=== PATIENT | female | born 1990 | race American Indian/Alaskan Native ===

== ENCOUNTER 2017-05-05 06:56 | Emergency (ER) | payer MEDICAID, OTHER ==
[2017-05-05 07:19] VITALS: BP 132/90
--- NOTE | 2017-05-05 09:03 | Emergency Department Report ---
ED ENT HPI - General Chief complaint: Dental/Oral Stated complaint: TOOTHACHE Time Seen by Provider: 05/05/17 08:19 Source: patient Mode of arrival: Ambulatory Limitations: No Limitations - History of Present Illness Initial comments: This is a 26-year-old female nontoxic, well nourished in appearance, no acute signs of distress presents to the ED complaining of toothache 1 day. Patient stated she has a fractured tooth that developed Severe pain. Patient denies any facial swelling, pus or drainage. Patient denies any fever, chills, stiff neck, headache, nausea or vomiting. Patient states allergies to codeine and Bentyl. Past medical history includes pancreatitis and hypokalemia MD complaint: tooth pain -: Gradual, days(s) (1) Severity: mild Severity scale (0 -10): 8 Quality: aching Consistency: constant Improves with: none Worsens with: none Context- Dental: history of dental caries, poor dental care Associated Symptoms: toothache. denies: fever, cough, gum swelling, pain with swallowing, sore throat, tinnitus, hearing loss, discharge from ear, rhinorrhea - Related Data Previous Rx's Medication Instructions Recorded Last Taken Type Amoxicillin/K Clav Tab [Augmentin 1 tab PO Q12HR #20 tab 05/05/17 Unknown Rx 875 mg] Ibuprofen [Motrin 600 MG tab] 600 mg PO Q8H PRN #30 tablet 05/05/17 Unknown Rx Allergies Allergy/AdvReac Type Severity Reaction Status Date / Time codeine Allergy Swelling Verified 05/05/17 07:20 dicyclomine HCl [From Bentyl] Allergy Swelling Verified 05/05/17 07:20 ED Dental HPI - General Chief complaint: Dental/Oral Stated complaint: TOOTHACHE Time Seen by Provider: 05/05/17 08:19 Source: patient Mode of arrival: Ambulatory Limitations: No Limitations - Related Data Previous Rx's Medication Instructions Recorded Last Taken Type Amoxicillin/K Clav Tab [Augmentin 1 tab PO Q12HR #20 tab 05/05/17 Unknown Rx 875 mg] Ibuprofen [Motrin 600 MG tab] 600 mg PO Q8H PRN #30 tablet 05/05/17 Unknown Rx Allergies Allergy/AdvReac Type Severity Reaction Status Date / Time codeine Allergy Swelling Verified 05/05/17 07:20 dicyclomine HCl [From Bentyl] Allergy Swelling Verified 05/05/17 07:20 ED Review of Systems ROS: Stated complaint: TOOTHACHE Other details as noted in HPI Constitutional: denies: chills, fever Eyes: denies: eye pain, eye discharge, vision change ENT: denies: ear pain, throat pain Respiratory: denies: cough, shortness of breath, wheezing Cardiovascular: denies: chest pain, palpitations Endocrine: no symptoms reported Gastrointestinal: denies: abdominal pain, nausea, diarrhea Genitourinary: denies: urgency, dysuria, discharge Musculoskeletal: denies: back pain, joint swelling, arthralgia Skin: denies: rash, lesions Neurological: denies: headache, weakness, paresthesias Psychiatric: denies: anxiety, depression Hematological/Lymphatic: denies: easy bleeding, easy bruising ED Past Medical Hx - Past Medical History Previous Medical History?: Yes Additional medical history: pancreatitis, low potassium - Surgical History Past Surgical History?: Yes Hx Cholecystectomy: Yes - Social History Smoking Status: Never Smoker Substance Use Type: None - Medications Home Medications: Home Medications Medication Instructions Recorded Confirmed Last Taken Type Amoxicillin/K Clav Tab [Augmentin 1 tab PO Q12HR #20 tab 05/05/17 Unknown Rx 875 mg] Ibuprofen [Motrin 600 MG tab] 600 mg PO Q8H PRN #30 tablet 05/05/17 Unknown Rx ED Physical Exam - General Limitations: No Limitations General appearance: alert, in no apparent distress - Head Head exam: Present: atraumatic, normocephalic, normal inspection - Eye Eye exam: Present: normal appearance, PERRL, EOMI. Absent: scleral icterus, conjunctival injection, nystagmus, periorbital swelling, periorbital tenderness Pupils: Present: normal accommodation - ENT ENT exam: Present: normal exam, normal orophraynx, mucous membranes moist, TM's normal bilaterally, normal external ear exam - Expanded ENT Exam Expanded Ear exam: Present: normal external inspection Mouth exam: Present: normal external inspection, tongue normal. Absent: drooling, trismus, muffled voice, tongue elevation, laceration Teeth exam: Present: dental caries, fractured tooth #, dental tenderness #, gingival enlargement 1 - Fractured, Dental Tenderness Throat exam: Positive: normal inspection. Negative: tonsillar erythema, tonsillomegaly, tonsillar exudate, R peritonsillar mass, L peritonsillar mass - Neck Neck exam: Present: normal inspection, full ROM. Absent: tenderness, meningismus, lymphadenopathy, thyromegaly - Respiratory Respiratory exam: Present: normal lung sounds bilaterally. Absent: respiratory distress, wheezes, rales, rhonchi, stridor, chest wall tenderness, accessory muscle use, decreased breath sounds, prolonged expiratory - Cardiovascular Cardiovascular Exam: Present: regular rate, normal rhythm, normal heart sounds. Absent: bradycardia, tachycardia, irregular rhythm, systolic murmur, diastolic murmur, rubs, gallop - GI/Abdominal GI/Abdominal exam: Present: soft, normal bowel sounds. Absent: distended, guarding, rebound, rigid, diminished bowel sounds - Rectal Rectal exam: Present: deferred - Extremities Exam Extremities exam: Present: normal inspection, full ROM, normal capillary refill. Absent: tenderness, pedal edema, joint swelling, calf tenderness - Back Exam Back exam: Present: normal inspection, full ROM. Absent: tenderness, CVA tenderness (R), CVA tenderness (L), muscle spasm, paraspinal tenderness, vertebral tenderness, rash noted - Neurological Exam Neurological exam: Present: alert, oriented X3, CN II-XII intact, normal gait, reflexes normal - Psychiatric Psychiatric exam: Present: normal affect, normal mood - Skin Skin exam: Present: warm, dry, intact, normal color. Absent: rash - Other Other exam information: No facial swelling, pus or drainage noted. ED Course Vital Signs 05/05/17 07:17 Temperature 98.6 F Pulse Rate 70 Respiratory 16 Rate Blood Pressure 132/90 O2 Sat by Pulse 100 Oximetry - Reevaluation(s) Reevaluation #1: 05/05/17 09:05 Patient is speaking in full sentences with no signs of distress noted. Critical care attestation.: If time is entered above; I have spent that time in minutes in the direct care of this critically ill patient, excluding procedure time. ED Disposition Clinical Impression: Dental caries, Gingivitis Disposition: TO HOME OR SELFCARE Is pt being admited?: No Does the pt Need Aspirin: No Condition: Stable Instructions: Dental Caries (ED), Gingivitis (ED), Amoxicillin/Clavulanate Potassium (By mouth) Additional Instructions: Follow-up with a dentist in 24 hours or if symptoms worsen continue return to emergency as soon as possible. Prescriptions: Amoxicillin/K Clav Tab [Augmentin 875 mg] 1 tab PO Q12HR #20 tab Ibuprofen [Motrin 600 MG tab] 600 mg PO Q8H PRN #30 tablet PRN Reason: Pain Referrals: PRIMARY CAREMD [Primary Care Provider] - 3-5 Days DREAD HENRY MD [Staff Physician] - 3-5 Days [facility] [Outside] - 24 Hours Forms: Work/School Release Form(ED)
== END 2017-05-05 10:34 | disposition home or self-care (01) ==
LOC: ED 06:56
DX: K02.9 Dental caries, unspecified (principal); K05.10 Chronic gingivitis, plaque induced
CPT/HCPCS: 99281

== ENCOUNTER 2019-09-16 18:42 | Emergency (ER) | payer MEDICAID ==
--- NOTE | 2019-09-16 19:26 | Event Note ---
ED Screening Note Date of service: 09/16/19 Time: 19:22 ED Screening Note: 28 y o femalewith a hx of low potassium at 6 months gestation presents cc of cp, tingling of finhgers and body aves and cramps hx of k infusion do not oral pottasium n/v due to no other sx This initial assessment/diagnostic orders/clinical plan/treatment(s) is/are subject to change based on patients health status, clinical progression and re- assessment by fellow clinical providers in the ED. Further treatment and workup at subsequent clinical providers discretion. Patient/guardian urged not to elope from the ED as their condition may be serious if not clinically assessed and managed. Initial orders include: cbc,cmp, ekg main eval
[2019-09-16 20:46] LABS: Basophils % (Auto) 0.3 % (0.0-1.8); Eosinophils # (Auto) 0.1 K/mm3 (0.0-0.4); Eosinophils % (Auto) 1.1 % (0.0-4.3); Hemoglobin 11.7 gm/dl (10.1-14.3); Lymphocytes # (Auto) 1.7 K/mm3 (1.2-5.4); Mean Corpuscular HGB Conc 35 % (30-34); Mean Corpuscular Volume 81 fl (79-97); Monocytes # (Auto) 0.4 K/mm3 (0.0-0.8); Monocytes % (Auto) 4.7 % (0.0-7.3); Platelet Count 213 K/mm3 (140-440); Red Blood Count 4.22 M/mm3 (3.65-5.03); Red Cell Distribution Width 14.4 % (13.2-15.2)
[2019-09-16 21:07] LABS: Alanine Aminotransferase 15 units/L (7-56); Albumin 3.9 g/dL (3.9-5); BUN/Creatinine Ratio 13; Blood Urea Nitrogen 5 mg/dL (7-17); Calcium 9.6 mg/dL (8.4-10.2); Hemolysis Index 1
[2019-09-16] MEDS ORDERED: POTASSIUM CHLORIDE ER 20 MEQ TAB PO ONE (22:13)
[2019-09-16] MEDS ORDERED: ONDANSETRON 4 MG ODT TAB PO ONE (22:13)
--- NOTE | 2019-09-16 22:25 | Emergency Department Report ---
ED General Adult HPI - General Chief complaint: Nausea/Vomiting/Diarrhea Stated complaint: THROWING UP Time Seen by Provider: 09/16/19 22:13 Source: patient Mode of arrival: Ambulatory Limitations: No Limitations - History of Present Illness Initial comments: Ms. Hall is 28 yo female with hx of current and hypokalemia who presents with nausea vomiting finger tingling. She is 6 months according to outpatient OB visit. She plans to terminate the out of state. She denies abdominal pain or vaginal bleeding. Symptoms have been present for several days. -: Gradual, days(s) (3) Location: left, right, upper extremity Severity scale (0 -10): 0 Quality: burning, other (tingling) Consistency: constant Improves with: none Worsens with: none Associated Symptoms: nausea/vomiting - Related Data Previous Rx's Medication Instructions Recorded Last Taken Type Amoxicillin/K Clav Tab [Augmentin 1 tab PO Q12HR #20 tab 05/05/17 Unknown Rx 875 mg] Ibuprofen [Motrin 600 MG tab] 600 mg PO Q8H PRN #30 tablet 05/05/17 Unknown Rx traMADoL [Ultram] 50 mg PO Q6HR PRN #3 tablet 05/05/17 Unknown Rx Potassium Chloride [K-Dur] 10 meq PO QDAY #30 tablet 09/16/19 Unknown Rx Promethazine [Phenergan SUPPOS] 25 mg TN Q6HR PRN #20 supp.rect 09/16/19 Unknown Rx Allergies Allergy/AdvReac Type Severity Reaction Status Date / Time codeine Allergy Swelling Verified 05/05/17 07:20 dicyclomine HCl [From Bentyl] Allergy Swelling Verified 05/05/17 07:20 ED Review of Systems ROS: Stated complaint: THROWING UP Other details as noted in HPI Comment: All other systems reviewed and negative Constitutional: denies: chills, fever, malaise Gastrointestinal: denies: abdominal pain Neurological: paresthesias ED Past Medical Hx - Past Medical History Previous Medical History?: Yes Additional medical history: pancreatitis, low potassium - Surgical History Past Surgical History?: Yes Hx Cholecystectomy: Yes - Social History Smoking Status: Never Smoker Substance Use Type: None - Medications Home Medications: Home Medications Medication Instructions Recorded Confirmed Last Taken Type Amoxicillin/K Clav Tab [Augmentin 1 tab PO Q12HR #20 tab 05/05/17 Unknown Rx 875 mg] Ibuprofen [Motrin 600 MG tab] 600 mg PO Q8H PRN #30 tablet 05/05/17 Unknown Rx traMADoL [Ultram] 50 mg PO Q6HR PRN #3 tablet 05/05/17 Unknown Rx Potassium Chloride [K-Dur] 10 meq PO QDAY #30 tablet 09/16/19 Unknown Rx Promethazine [Phenergan SUPPOS] 25 mg TN Q6HR PRN #20 supp.rect 09/16/19 Unknown Rx ED Physical Exam - General Limitations: No Limitations General appearance: alert, in no apparent distress, other (well appearing comfortable) - Head Head exam: Present: atraumatic, normocephalic - Eye Eye exam: Present: normal appearance - ENT ENT exam: Present: mucous membranes moist - Neck Neck exam: Present: normal inspection, full ROM - Respiratory Respiratory exam: Present: normal lung sounds bilaterally. Absent: respiratory distress, wheezes, rales, rhonchi - Cardiovascular Cardiovascular Exam: Present: regular rate, normal rhythm, normal heart sounds. Absent: systolic murmur, diastolic murmur, rubs, gallop - GI/Abdominal GI/Abdominal exam: Present: soft, distended (gravid 20 week uterus on palpuation above umbilicus), normal bowel sounds. Absent: tenderness, guarding, rebound - Extremities Exam Extremities exam: Present: normal inspection - Neurological Exam Neurological exam: Present: alert, oriented X3 - Psychiatric Psychiatric exam: Present: normal affect, normal mood - Skin Skin exam: Present: warm, dry, intact, normal color. Absent: rash ED Course Vital Signs 09/16/19 19:40 Temperature 98.5 F Pulse Rate 97 H Respiratory 18 Rate Blood Pressure 144/78 [Left] O2 Sat by Pulse 99 Oximetry ED Medical Decision Making - Lab Data Result diagrams: 09/16/19 20:28 09/16/19 20:28 - EKG Data EKG shows normal: sinus rhythm, axis, intervals, QRS complexes, ST-T waves Rate: normal - EKG Data Interpretation: normal EKG - Medical Decision Making Ms. Hall presents with hypokalemia 2.7 on labs with reported n/v. Appears well hydrated. given zofran ODT and po kcl prescribed promethazine and kcl she is referred to her ob [facility] Critical care attestation.: If time is entered above; I have spent that time in minutes in the direct care of this critically ill patient, excluding procedure time. ED Disposition Clinical Impression: Hypokalemia, Second trimester , Paresthesia Disposition: TO HOME OR SELFCARE Is pt being admited?: No Does the pt Need Aspirin: No Condition: Stable Instructions: Hypokalemia (ED) Prescriptions: Potassium Chloride [K-Dur] 10 meq PO QDAY #30 tablet Promethazine [Phenergan SUPPOS] 25 mg TN Q6HR PRN #20 supp.rect PRN Reason: Nausea Referrals: NELI CHOI MD [Staff Physician] - 3-5 Days
[2019-09-17 00:40] VITALS: BP 132/88
== END 2019-09-16 23:10 | disposition home or self-care (01) ==
LOC: ED 18:42
DX: O99.282 Endocrine, nutritional and metabolic diseases complicating pregnancy, second trimester (principal); E87.6 Hypokalemia; O26.892 Other specified pregnancy related conditions, second trimester; R20.2 Paresthesia of skin; Z90.49 Acquired absence of other specified parts of digestive tract; Z79.1 Long term (current) use of non-steroidal anti-inflammatories (NSAID); Z79.2 Long term (current) use of antibiotics; Z79.899 Other long term (current) drug therapy; Z88.4 Allergy status to anesthetic agent; Z88.8 Allergy status to other drugs, medicaments and biological substances; Z3A.20 20 weeks gestation of pregnancy
CPT/HCPCS: 36415; 80053; 83735; 85025; 93005; 93010; Q0162

== ENCOUNTER 2019-11-01 02:39 | Outpatient (CLI) | payer MEDICAID ==
[2019-11-01 02:51] VITALS: BP 121/64
== END 2019-11-01 04:36 | disposition home or self-care (01) ==
LOC: TRG 02:39
PROVIDERS: ATTEND Obstetrics & Gynecology
DX: O60.14X1 Preterm labor third trimester with preterm delivery third trimester, fetus 1 (principal); Z3A.32 32 weeks gestation of pregnancy
CPT/HCPCS: 59025

== ENCOUNTER 2019-11-21 04:40 | Outpatient (CLI) | payer MEDICAID ==
[2019-11-21 06:54] LABS: Basophils % (Auto) 0.3 % (0.0-1.8); Eosinophils # (Auto) 0.3 K/mm3 (0.0-0.4); Eosinophils % (Auto) 3.1 % (0.0-4.3); Hematocrit 31.1 % (30.3-42.9); Hemoglobin 10.3 gm/dl (10.1-14.3); Lymphocytes # (Auto) 2.2 K/mm3 (1.2-5.4); Lymphocytes % (Auto) 23.7 % (13.4-35.0); Mean Corpuscular HGB Conc 33 % (30-34); Mean Corpuscular Volume 81 fl (79-97); Monocytes # (Auto) 0.7 K/mm3 (0.0-0.8); Monocytes % (Auto) 7.2 % (0.0-7.3); Platelet Count 200 K/mm3 (140-440); Red Blood Count 3.86 M/mm3 (3.65-5.03); Red Cell Distribution Width 14.4 % (13.2-15.2)
[2019-11-21 07:04] LABS: Color,Urine Yellow (Yellow)
[2019-11-21 07:05] LABS: Bilirubin,Urine NEG (Negative); Blood,Urine NEG (Negative); Protein,Urine <15 mg/dL mg/dL (Negative); RBC,Urine < 1.0 /HPF (0.0-6.0)
[2019-11-21 07:13] LABS: Amphetamine Screen,Urine PRESUMPTIVE NEGATIVE; Benzodiazepines Screen,Urine PRESUMPTIVE NEGATIVE; Cannabinoid Screen,Urine PRESUMPTIVE NEGATIVE; Cocaine Screen,Urine PRESUMPTIVE NEGATIVE; Methadone Screen,Urine PRESUMPTIVE NEGATIVE; Opiate Screen,Urine PRESUMPTIVE NEGATIVE
[2019-11-21 07:24] LABS: Hepatitis C Virus Antibody Non-Reactive (NonReactive)
--- NOTE | 2019-11-21 07:32 | Ultrasound Report ---
US OB BPP wo non-stress, US OB >= 14 weeks Fetus INDICATION / CLINICAL INFORMATION: ASSESSMENT. COMPARISON: None available. FINDINGS: Single viable intrauterine gestation in cephalic presentation. heart rate 178 bpm The MEAGAN is 12. Grade 1 placenta is anterior and free of the os. measurements: BPD 7.8 equal to 31 weeks 2 days Head circumference 29.5 equal to 32 weeks 4 days Abdominal circumference 30.1 equals to 34 weeks Femur length 6.2 equal to 32 weeks 1 day Estimated body weight 2117 g. Cervical length is measured at 3.4 cm. Biophysical score 03/22. IMPRESSION: 1. Viable 32 week single intrauterine gestation. Signer Name: Luis Enrique Parry MD Signed: 11/21/2019 7:28 AM Workstation Name: [email or web address]
[2019-11-21 07:33] VITALS: BP 112/69
[2019-11-21 07:37] LABS: HCG,Quantitative 18947 mIU/mL (0-4)
== END 2019-11-21 08:10 | disposition home or self-care (01) ==
LOC: TRG 04:40
PROVIDERS: ATTEND Obstetrics & Gynecology
DX: Z3A.32 32 weeks gestation of pregnancy (principal); O26.893 Other specified pregnancy related conditions, third trimester
CPT/HCPCS: 36415; 59025; 76805; 76819; 80307; 81001; 84702; 85025; 86592; 86706; 86762; 86803; 87806

== ENCOUNTER 2019-12-09 02:36 | Outpatient (CLI) | payer MEDICAID ==
[2019-12-09 03:51] LABS: Hematocrit 32.8 % (30.3-42.9); Hemoglobin 11.2 gm/dl (10.1-14.3); Mean Corpuscular HGB Conc 34 % (30-34); Mean Corpuscular Volume 80 fl (79-97); Platelet Count 170 K/mm3 (140-440); Red Cell Distribution Width 14.1 % (13.2-15.2)
[2019-12-09 03:59] LABS: Bilirubin,Urine NEG (Negative); Blood,Urine NEG (Negative); Color,Urine Yellow (Yellow); Protein,Urine <15 mg/dL mg/dL (Negative); Urobilinogen,Urine < 2.0 mg/dL (<2.0); WBC,Urine < 1.0 /HPF (0.0-6.0)
[2019-12-09 04:07] LABS: Alanine Aminotransferase 8 units/L (7-56); Uric Acid 4.8 mg/dL (3.5-7.6)
[2019-12-09 05:12] VITALS: BP 118/81
--- NOTE | 2019-12-09 05:15 | Event Note ---
Date: 12/09/19 (Triage evaluation) Called and c/o poss leaking fluid and "loosing mucus plug" Evaluated in Triage BPP 8/8, MEAGAN 11 Pt had 2 BP 120/90 & 120/91 PreE w/u wnl remainder of BPs wnl. Denies any OSUNA, blurred vision, chest pain. Appt made for pt 12-10-19 @ 1030 in [place] office Needs IOB labs and GTT Pt aware and agrees to date and time.
--- NOTE | 2019-12-09 05:57 | Ultrasound Report ---
LIMITED OBSTETRICAL ULTRASOUND INDICATION: Near term , fluid leak COMPARISON: 11/21/2019 FINDINGS: Near term intrauterine is seen in a cephalic position. Dating was not performed a nd anatomic survey was not performed. Cardiac activity was documented with heart rate of 131 bp m. Placenta is anterior and free of the internal cervical os. MEAGAN was calculated at 11.6 cm which is within normal limits. BIOPHYSICAL PROFILE breathing movements: 2/2 movements: 2/2 posture and tone tone: 2/2 Qualitative amniotic fluid volume: 2/2 Total score: 8/8, within normal limits Signer Name: Keven Bryant MD Signed: 12/09/2019 5:53 AM Workstation Name: [email or web address]
== END 2019-12-09 05:15 | disposition home or self-care (01) ==
LOC: TRG 02:36 → APU 02:37 → TRG 05:15
PROVIDERS: ATTEND Obstetrics & Gynecology
DX: O47.03 False labor before 37 completed weeks of gestation, third trimester (principal); Z3A.35 35 weeks gestation of pregnancy
CPT/HCPCS: 36415; 59025; 76815; 76819; 81001; 82565; 83615; 84450; 84460; 84550; 85027

== ENCOUNTER 2019-12-27 20:31 | Inpatient (IN) | payer MEDICAID ==
[2019-12-27] MEDS ORDERED: MINERAL OIL 30 ML ORAL LIQD ONE (20:45)
[2019-12-27] MEDS ORDERED: OXYTOCIN 20 UNIT/1000ML DRIP 40,000 MILLIUNITS/2,000 ML BAG IV ONE (20:45)
[2019-12-27] MEDS ORDERED: LIDOCAINE (2%) 20 MG/1 ML VIAL 20 ML MDV INFILTRATI ONE ×2 (20:46→21:44)
[2019-12-27] MEDS ORDERED: LACTATED RINGERS 1,000 ML ONE (20:46)
[2019-12-27] MEDS ORDERED: fentaNYL 100 MCG/2 ML INJ ONE (20:57)
--- NOTE | 2019-12-27 21:41 | History and Physical Report ---
History of Present Illness Date of examination: 12/27/19 Chief complaint: labor, arrived 10cms History of present illness: EDC Confirmation: 01/16/2020 Past History : 7 Term Births: 5 Premature Births: 1 Living Children: 6 Para: 6 Mult. Births: 0 Prev : 0 Aborta: 0 Elect. Ab: 0 Spont. Ab: 0 # 1 Delivery date: 2007 Weeks Gestation: term labor: no Delivery type: Vaginal Hours of labor: 3 Anesthesia type: none Delivery location: [facility] Infant Sex: Female weight: 7#5 Comments: limited care # 2 Delivery date: 2009 Weeks Gestation: term labor: no Delivery type: Infant Sex: Male weight: 8# # 3 Delivery date: 2011 Weeks Gestation: term labor: no Delivery type: Infant Sex: Male weight: 6#5 # 4 Delivery date: 2014 Weeks Gestation: term labor: no Delivery type: Sex: Male weight: 8# # 5 Delivery date: 2017 Weeks Gestation: term labor: no Delivery type: Infant Sex: Female weight: 5# # 6 Delivery date: 10/24/2018 Weeks Gestation: 36+1 labor: yes Delivery type: Hours of labor: 3 Anesthesia type: none Delivery location: [facility] Infant Sex: Male weight: 6# Comments: very limtied [facility] Past Medical History: pancreatitis - managed by [facility] in [place] Past Surgical History: Cholecystectomy Past Medical History Surgery (Non-imaging analyst): Cholecystectomy Abnormal PAP: negative Family Hx: htn - mother Social Hx: stay at home mom denies ETOH/Drugs/Smoking no pets Infection History Hx of STD: trich 2008 HIV Risk Eval: low risk Hepatitis B Risk Eval: low risk Personal hx. of genital herpes: no Partner hx. of genital herpes: no Rash, Viral, or Febrile illness since last LMP? no Varicella/Chicken Pox Status: Unknown Genetic History Congenital Heart Defect: Mom: no Dad: no Kristin Disease: Mom: no Dad: no Thalassemia Mom: no Dad: no Neural Tube Defect Mom: no Dad: no Down's Syndrome Mom: no Dad: no Chi-Sachs Mom: no Dad: no Sickle Cell Disease/Trait Mom: no Dad: no Hemophilia Mom: no Dad: no Muscular Dystrophy Mom: no Dad: no Cystic Fibrosis Mom: no Dad: no [place] Chorea Mom: no Dad: no Mental Retardation Mom: no Dad: no Fragile X Mom: no Dad: no Other Genetic/Chromosomal Disorder Mom: no Dad: no Child w/other defect Mom: no Dad: no Enviromental Exposures Xray Exposure: no Medication, drug, or alcohol use since LMP: no Chemical/Other Exposure: no Exposure to Cat Liter: no Hx of Parvovirus (Fifth Disease): no Occupational Exposure to Children: none Current Allergies (reviewed today): No known allergies Past History Past Medical History: other (se HPI) Past Surgical History: other (see HPI) SQL TECH History: other (see HPI) Family/Genetic History: other (see HPI) - Obstetrical History Expected Date of Delivery: 01/16/20 Actual Gestation: 37 Week(s) 1 Day(s) : 7 Para: 6 Hx # Term Pregnancies: 5 Number of Pregnancies: 1 Spontaneous Abortions: 0 Induced : 0 Number of Living Children: 6 Medications and Allergies Allergies Allergy/AdvReac Type Severity Reaction Status Date / Time ibuprofen Allergy Mild Itching Verified 11/01/19 03:01 codeine Allergy Swelling Verified 05/05/17 07:20 dicyclomine HCl [From Bentyl] Allergy Swelling Verified 05/05/17 07:20 Home Medications Medication Instructions Recorded Confirmed Last Taken Type Amoxicillin/K Clav Tab [Augmentin 1 tab PO Q12HR #20 tab 05/05/17 Unknown Rx 875 mg] Ibuprofen [Motrin 600 MG tab] 600 mg PO Q8H PRN #30 tablet 05/05/17 Unknown Rx traMADoL [Ultram] 50 mg PO Q6HR PRN #3 tablet 05/05/17 Unknown Rx Potassium Chloride [K-Dur] 10 meq PO QDAY #30 tablet 09/16/19 Unknown Rx Promethazine [Phenergan SUPPOS] 25 mg NV Q6HR PRN #20 supp.rect 09/16/19 Unknown Rx Review of Systems All systems: negative - Vital Signs Vital signs: Vital Signs Temp Pulse Resp BP 97.5 F L 96 H 20 148/91 12/27/19 20:35 12/27/19 20:35 12/27/19 20:35 12/27/19 20:35 Temp Pulse Resp BP Pulse Ox 97.5 F L 96 H 20 148/91 12/27/19 20:35 12/27/19 20:35 12/27/19 20:35 12/27/19 20:35 - Physical Exam Breasts: Positive: normal Cardiovascular: Regular rate Lungs: Positive: Clear to auscultation, Normal air movement Abdomen: Positive: normal appearance, soft Genitourinary (Female): Positive: normal external genitalia, normal perenium Vulva: both: normal Vagina: Positive: normal moisture Uterus: Positive: normal size, normal contour Anus/Rectum: Positive: normal perianal skin Extremities: Positive: normal Deep Tendon Reflex Grade: Normal +2 - Obstetrical FHR: category 1 Uterine Contraction Monitor Mode: External Cervical Dilatation: 10 Cervical Effacement Percentage: 100 station: 0 Uterine Contraction Pattern: Regular Uterine Tone Measurement Phase: Contraction Uterine Contraction Intensity: Strong/Firm Results All other labs normal. Assessment and Plan patient arrived via EMS 10cms. Admission orders in EMR. Anticipate - Patient Problems (1) Limited care in third trimester Current Visit: Yes Status: Acute (2) 37 weeks gestation of Current Visit: Yes Status: Acute (3) GBS (group B Streptococcus carrier), +RV culture, currently Current Visit: Yes Status: Acute
[2019-12-27] MEDS ORDERED: TERBUTALINE 1 MG/1 ML INJ SUB-Q PRN (21:44)
[2019-12-27] MEDS ORDERED: AMPICILLIN/NS 2 GM/100 ML 2 GM/100 ML BAG IV ONE (21:44)
[2019-12-27] MEDS ORDERED: fentaNYL 100 MCG/2 ML INJ IV PRN (21:44)
[2019-12-27] MEDS ORDERED: ePHEDrine SULFATE 50 MG/1 ML INJ IV PRN (21:44)
[2019-12-27] MEDS ORDERED: MINERAL OIL 30 ML ORAL LIQD PO PRN (21:44)
--- NOTE | 2019-12-27 21:54 | Procedure Note ---
OB Delivery Note - Delivery Date of Delivery: 12/27/19 ( Male "Seven") Director Of Officiating: FRANCINE SCHNEIDER Estimated blood loss: 200cc - Vaginal Delivery presentation: vertex Delivery position: OA Intrapartum events: precipitous labor- <3hr, other(please specify) (limited PNC) Delivery induction: none Delivery augmentation: rupture of membranes Delivery monitor: external FHT, external uterine Route of delivery: Delivery placenta: spontaneous Delivery cord: 3 umbilical vessels Episiotomy: none Delivery laceration: none Anesthesia: none Delivery comments: Male baby born over intact perineum, EDDY. placed skin to skin on mother's abdomen. 3 vessel cord clamped and cut. Cord blood collected. Placenta del intact and complete. no lacerations to repair. EBL 200. Apgars 8/9. wt 6#9.5oz. counts correct. mother bad baby LDR stable. - Infant A at 1 minute: 8 at 5 minutes: 9 Infant Gender: Male (6#9.5oz "Seven")
[2019-12-27] MEDS ORDERED: OXYTOCIN 20 UNIT/1000ML DRIP 20 UNITS/1,000 ML BAG IV SCH (22:00)
[2019-12-27] MEDS ORDERED: LACTATED RINGERS 1,000 ML IV SCH (22:00)
[2019-12-27 22:34] LABS: Hematocrit 33.9 % (30.3-42.9); Hemoglobin 11.1 gm/dl (10.1-14.3); Mean Corpuscular HGB Conc 33 % (30-34); Mean Corpuscular Volume 79 fl (79-97); Platelet Count 186 K/mm3 (140-440); Red Blood Count 4.27 M/mm3 (3.65-5.03); Red Cell Distribution Width 14.8 % (13.2-15.2)
[2019-12-28] MEDS ORDERED: AMPICILLIN/NS 1 GM/50 ML 1 GM/50 ML BAG IV SCH (01:45)
[2019-12-28] MEDS ORDERED: LANOLIN/ZINC/DIMETHICONE (LANSINOH) 7 GM TP PRN (01:48)
[2019-12-28] MEDS ORDERED: MAGNESIUM HYDROXIDE (MOM) ORAL LIQD UDC PO PRN (01:48)
[2019-12-28] MEDS ORDERED: PROMETHAZINE 25 MG TAB PO PRN (01:48)
[2019-12-28] MEDS ORDERED: ONDANSETRON 4 MG/2 ML INJ IV PRN (01:48)
[2019-12-28] MEDS ORDERED: diphenhydrAMINE 25 MG CAP PO PRN (01:48)
[2019-12-28] MEDS ORDERED: OXYTOCIN 20 UNIT/1000ML DRIP 20 UNITS/1,000 ML BAG IV SCH (01:48)
[2019-12-28] MEDS ORDERED: BENZOCAINE/MENTHOL 20/0.5% TOP SPRAY 56 GM TP PRN (01:48)
[2019-12-28] MEDS ORDERED: WITCH HAZEL/ GLYCERIN PAD TP PRN (01:48)
[2019-12-28] MEDS: DOCUSATE SODIUM 100 MG CAP PO SCH ×2 (02:34→09:27)
[2019-12-28] MEDS: ACETAMINOPHEN 325 MG TAB PO PRN ×3 (02:34→23:07)
[2019-12-28] MEDS ORDERED: DIPHtheria,PERTUSSIS(ACELL),TETANUS VACCINE/PF 0.5 ML VIAL IM ONE (06:00)
[2019-12-28] MEDS: PRENATAL VIT27-FE FUMARATE-FOLIC ACID VIT TAB PO SCH (09:27)
[2019-12-28 10:12] LABS: Hemoglobin 9.2 gm/dl (10.1-14.3)
--- NOTE | 2019-12-28 13:32 | Discharge Summary ---
Providers - Providers Date of Admission: 12/27/19 21:19 Date of discharge: 12/28/19 (Pt has very strong desire to go home. ) Attending physician: ART ARANDA Primary care physician: ART ARANDA Hospitalization Reason for admission: active labor Delivery: Episiotomy: none Laceration: none Other procedures: none complications: none Discharge diagnosis: IUP at term delivered [place] baby: male Hospital course: S: Pt has a very strong desire to go home. She is ambulating, voiding and passing flatus without difficulty. BC: BTL. Will have Depo before discharge home. O: VSS,. Fundus firm, minimal bleeding noted. Adequate I&O's. H/H 9.2/28.0. A: 29 y.o. s/p @ term, limited PNC. Stable for discharge home. P: Discharge home with instructions. To schedule and circumcision appointments once discharged. Condition at discharge: Good Disposition: DC-01 TO HOME OR SELFCARE Plan - Discharge Medications Prescriptions: Lidocain2.5%/Prilocai2.5% [Emla] 1 applic TP ONCE #1 tube - Provider Discharge Summary Activity: routine, no sex for 6 weeks, no heavy lifting 4 weeks, no strenuous exercise Diet: routine Instructions: routine Additional instructions: [] Smoking cessation referral if applicable(refer to patient education folder for contact #) [] Refer to [facility] Booklet Call your doctor immediately for: * Fever > 100.5 * Heavy vaginal bleeding ( >1 pad per hour) * Severe persistent headache * Shortness of breath * Reddened, hot, painful area to leg or breast * Drainage or odor from incision. * Keep incision clean and dry at all times and follow doctor's instructions regarding bathing/showering - Follow up plan Follow up: ART ARANDA MD [Primary Care Provider] - 7 Days (Congratulations!! Please schedule circumcision visit in the office for your son in 1 week. You have been prescribed EMLA cream. Do not use the EMLA cream at home. Bring the EMLA cream to your son's circumcision appointment. Please schedule a visit in 4 weeks. )
[2019-12-28] MEDS ORDERED: medroxyPROGESTERone ACETATE 150 MG/ML SYRINGE IM ONE (19:14)
[2019-12-29] MEDS: ACETAMINOPHEN 325 MG TAB PO PRN (06:45)
--- NOTE | 2019-12-29 09:27 | Event Note ---
Date: 12/29/19 (Pt resting. ) Pt is doing well at this time. Per RN can not be discharged d/t still being watched because pt did not get antibiotics for GBS positive because she was a precipitous delivery. Pt aware that infant will need to stay for 48 hours for observations. she is stable for discharge home and the order is written. Pt will be discharged home when infant is discharged home.
[2019-12-29] MEDS: DOCUSATE SODIUM 100 MG CAP PO SCH (09:43)
[2019-12-29] MEDS: PRENATAL VIT27-FE FUMARATE-FOLIC ACID VIT TAB PO SCH (09:43)
[2019-12-29 15:03] VITALS: BP 134/84
[2019-12-29] MEDS ORDERED: medroxyPROGESTERone ACETATE 150 MG/ML SYRINGE IM ONE (15:08)
== END 2019-12-29 15:35 | disposition home or self-care (01) | DRG 775 ==
LOC: TRG 20:31 → LD 20:32 → TRG 21:19 → OB 12-28 01:01
PROVIDERS: ADMIT Obstetrics & Gynecology; ATTEND Obstetrics & Gynecology
PROC: 10E0XZZ Delivery of Products of Conception, External Approach (ICD-10-PCS; principal; 2019-12-27)
PROC: 3E0234Z Introduction of Serum, Toxoid and Vaccine into Muscle, Percutaneous Approach (ICD-10-PCS; 2019-12-27)
DX: O99.824 Streptococcus B carrier state complicating childbirth (principal); O62.3 Precipitate labor; Z3A.37 37 weeks gestation of pregnancy; Z37.0 Single live birth; Z23 Encounter for immunization; Z90.49 Acquired absence of other specified parts of digestive tract; Z88.5 Allergy status to narcotic agent; Z88.6 Allergy status to analgesic agent; Z88.8 Allergy status to other drugs, medicaments and biological substances
CPT/HCPCS: 36415; 85014; 85018; 85027; 86850; 86900; 86901; G0378; J1050; J2590; J3010; J7120

== ENCOUNTER 2020-08-07 02:00 | Emergency (ER) | payer MEDICAID | END 2020-08-07 03:00 | disposition left against medical advice (07) | LOC: ED 02:00 | DX: K08.89 Other specified disorders of teeth and supporting structures (principal); Z53.21 Procedure and treatment not carried out due to patient leaving prior to being seen by health care provider ==

== ENCOUNTER 2021-05-02 05:01 | Emergency (ER) | payer MEDICAID ==
--- NOTE | 2021-05-02 05:13 | Emergency Department Report ---
Chief Complaint: Abdominal Pain Stated Complaint: ABD PAIN Time Seen by Provider: 05/02/21 05:11 - ROS Review of Systems: 30-year-old G5 female with last menstrual period was sometime in January presents emerged from complaining of swelling to the abdomen along with some milky vaginal secretions and a positive home test a couple times last week. States that the pain the symptoms associated with cramping and which brought her to the emergency department this evening no fever, chills, sweats no vaginal bleeding reports no chest pain no palpitations. - Exam Physical Exam: Examination abdomen is protuberant pulses are 2+ to the inguinal region. Patient alert and oriented x3 no acute distress MSE screening note: Focused history and physical exam performed. Due to findings the following was ordered: ED Disposition for MSE Condition: Stable Instructions: Abdominal Pain (ED)
[2021-05-02 06:16] LABS: Basophils % (Auto) 0.4 % (0.0-1.8); Eosinophils # (Auto) 0.2 K/mm3 (0.0-0.4); Eosinophils % (Auto) 1.9 % (0.0-4.3); Hematocrit 36.3 % (30.3-42.9); Hemoglobin 12.3 gm/dl (10.1-14.3); Lymphocytes # (Auto) 2.4 K/mm3 (1.2-5.4); Lymphocytes % (Auto) 27.1 % (13.4-35.0); Mean Corpuscular HGB Conc 34 % (30-34); Mean Corpuscular Volume 81 fl (79-97); Monocytes # (Auto) 0.5 K/mm3 (0.0-0.8); Monocytes % (Auto) 5.6 % (0.0-7.3); Platelet Count 238 K/mm3 (140-440); Red Cell Distribution Width 13.9 % (13.2-15.2)
--- NOTE | 2021-05-02 06:48 | Ultrasound Report ---
. ULTRASOUND OBSTETRIC REASON FOR EXAM: and vaginal secretions TECHNIQUE: Transabdominal and transvaginal ultrasound was performed to evaluate a first trimester pre gnancy. COMPARISON: None available. FINDINGS: FINDINGS: The pole, yolk sac, and gestational sac are normal in appearance. [place]-rump length: 6.1 . This corresponds with a gestational age of 12 weeks 3 days. heart rate: 150 bpm Perigestational hemorrhage: No evidence of perigestational hemorrhage on the provided images. MATERNAL FINDINGS: The uterus demonstrates otherwise unremarkable sonographic appearance.. The right ovary demonstrates a normal sonographic appearance. The left ovary demonstrates a normal sonographic appearance. Cul-de-sac: There is no free fluid. IMPRESSION: Single live intrauterine . Gestational age is 12 weeks 3 days by ultrasound. Recommend clini ja screening and ultrasound follow-up in the second trimester to screen for anomalies. Signer Name: Jed Branch MD Signed: 05/02/2021 6:43 AM Workstation Name: [id number]
== END 2021-05-02 08:53 | disposition left against medical advice (07) ==
LOC: ED 05:01
DX: R10.9 Unspecified abdominal pain (principal); Z53.21 Procedure and treatment not carried out due to patient leaving prior to being seen by health care provider
CPT/HCPCS: 36415; 76801; 84702; 85025; 86900; 86901

== ENCOUNTER 2021-05-18 22:38 | Outpatient (CLI) | payer MEDICAID ==
[2021-05-18] MEDS ORDERED: LACTATED RINGERS 1,000 ML IV ONE (23:56)
[2021-05-19 01:05] LABS: Bilirubin,Urine NEG (Negative); Blood,Urine NEG (Negative); Color,Urine Yellow (Yellow); Mucus,Urine FEW /HPF; Protein,Urine <15 mg/dL mg/dL (Negative)
--- NOTE | 2021-05-19 01:40 | Ultrasound Report ---
Obstetrical ultrasound limited INDICATION: Abdominal pain with vaginal bleeding. patient FINDINGS: Single living intrauterine in the breech position. The placenta is posterior. The placenta grade 0. heart rate 151 bpm. IMPRESSION: No definite evidence of placental abruption. Single living intrauterine , as abo ve. Signer Name: Pacheco You MD Signed: 05/19/2021 1:36 AM Workstation Name: [id number]
== END 2021-05-19 01:50 | disposition home or self-care (01) ==
LOC: TRG 22:38 → APU 22:39 → TRG 05-19 01:50
PROVIDERS: ATTEND Obstetrics & Gynecology
DX: O47.03 False labor before 37 completed weeks of gestation, third trimester (principal); Z3A.37 37 weeks gestation of pregnancy
CPT/HCPCS: 59025; 76815; 81001; 87086; 96360; J7120

== ENCOUNTER 2021-07-18 06:12 | Outpatient (CLI) | payer MEDICAID ==
[2021-07-18] MEDS ORDERED: LACTATED RINGERS 500 ML IV ONE (07:05)
[2021-07-18 07:15] VITALS: BP 122/80
[2021-07-18 08:07] LABS: Hematocrit 33.8 % (30.3-42.9); Mean Corpuscular HGB Conc 33 % (30-34); Mean Corpuscular Volume 82 fl (79-97); Platelet Count 206 K/mm3 (140-440); Red Blood Count 4.13 M/mm3 (3.65-5.03); Red Cell Distribution Width 14.5 % (13.2-15.2)
--- NOTE | 2021-07-18 08:56 | Ultrasound Report ---
ULTRASOUND OBSTETRIC INDICATION / CLINICAL INFORMATION: well being, no care workup. Clinical Gestational Age (GA) in weeks, days: 23 weeks, 3 days TECHNIQUE: Transabdominal. COMPARISON: Ultrasound 05/19/2021 FINDINGS: Single intrauterine . Biparietal Diameter = 5.7 cm = 23 weeks 2 days Head Circumference = 21.5 cm = 23 weeks 4 days Abdominal Circumference = 17.6 cm = 22 weeks 3 days Femur Length = 3.8 cm = 22 weeks 1 day Average Ultrasound Age (AUA) = 22 weeks 6 days Heart Rate: 138 beats per minute. Estimated Weight in grams (if calculated): 509 g Estimated Weight Growth Percentile (if calculated): Not calculated Position: breech. Cervix: closed. Length in cm (if measured): 3.4 Placenta: 0 and free of the os. Placenta is right lateral in location. Amniotic Fluid Volume: normal Amniotic Fluid Index (MEAGAN) in cm (if calculated): 17.3. Maternal Adnexa: No significant abnormality. IMPRESSION: 1. Single, living intrauterine with estimated sonographic age of 22 weeks 6 days. 2. No significant sonographic abnormality. Signer Name: Tal Crenshaw MD Signed: 07/18/2021 8:51 AM Workstation Name: [id number]
[2021-07-18 09:06] LABS: Albumin 3.3 g/dL (3.9-5); Blood Urea Nitrogen 5 mg/dL (7-17); Calcium 8.5 mg/dL (8.4-10.2); Hemolysis Index 460
[2021-07-18 09:16] LABS: BUN/Creatinine Ratio 13
[2021-07-18 09:18] LABS: Alanine Aminotransferase < 5 units/L (7-56)
[2021-07-18 09:53] LABS: Bacteria,Urine 1+ /HPF (Negative); Bilirubin,Urine NEG (Negative); Blood,Urine NEG (Negative); Color,Urine Yellow (Yellow); Mucus,Urine 1+ /HPF; Urobilinogen,Urine < 2.0 mg/dL (<2.0)
== END 2021-07-18 10:30 | disposition left against medical advice (07) ==
LOC: TRG 06:12 → APU 06:13 → TRG 10:30
PROVIDERS: ATTEND Obstetrics & Gynecology
DX: O62.9 Abnormality of forces of labor, unspecified (principal); O26.892 Other specified pregnancy related conditions, second trimester; R10.9 Unspecified abdominal pain; Z3A.23 23 weeks gestation of pregnancy
CPT/HCPCS: 36415; 59025; 76805; 80053; 81001; 85027; 87086; J7120; 96360

== ENCOUNTER 2021-09-04 03:05 | Outpatient (CLI) | payer MEDICAID ==
[2021-09-04 03:40] VITALS: BP 118/71
[2021-09-04] MEDS ORDERED: LACTATED RINGERS 500 ML IV ONE (03:57)
[2021-09-04 05:32] LABS: Bilirubin,Urine NEG (Negative); Blood,Urine NEG (Negative); Color,Urine Yellow (Yellow); Mucus,Urine FEW /HPF; Urobilinogen,Urine < 2.0 mg/dL (<2.0)
[2021-09-04] MEDS ORDERED: LOPERAMIDE 2 MG CAP PO PRN (05:46)
== END 2021-09-04 06:30 | disposition home or self-care (01) ==
LOC: TRG 03:05 → APU 03:06 → TRG 06:30
PROVIDERS: ATTEND Obstetrics & Gynecology
DX: O26.893 Other specified pregnancy related conditions, third trimester (principal); R10.9 Unspecified abdominal pain; Z3A.30 30 weeks gestation of pregnancy
CPT/HCPCS: 59025; 81001; 96360

== ENCOUNTER 2021-10-26 02:24 | Outpatient (CLI) | payer MEDICAID ==
[2021-10-26 03:04] VITALS: BP 129/67
[2021-10-26 03:11] LABS: Bilirubin,Urine NEG (Negative); Blood,Urine NEG (Negative); Color,Urine Yellow (Yellow); Protein,Urine <15 mg/dL mg/dL (Negative); Urobilinogen,Urine < 2.0 mg/dL (<2.0); WBC,Urine < 1.0 /HPF (0.0-6.0)
[2021-10-26 03:44] LABS: RBC,Urine < 1.0 /HPF (0.0-6.0)
--- NOTE | 2021-10-26 04:43 | Ultrasound Report ---
ULTRASOUND OBSTETRIC LIMITED INDICATION / CLINICAL INFORMATION: Full MEAGAN. - Clinical Gestational Age (GA) in weeks, days: 37, 5 TECHNIQUE: Transabdominal. COMPARISON: None available. FINDINGS: HEART RATE (beats per minute): 131 AMNIOTIC FLUID INDEX (cm) = 11.5 (normal = 7-24 cm) PRESENTATION: Cephalic. ADDITIONAL FINDINGS: None. IMPRESSION: 1. Viable intrauterine . 2. Amniotic fluid index is 11.5 cm. Signer Name: Freddy Christianson MD Signed: 10/26/2021 4:39 AM Workstation Name: [id number]
== END 2021-10-26 04:41 | disposition home or self-care (01) ==
LOC: TRG 02:24 → APU 02:26 → TRG 04:41
PROVIDERS: ATTEND Obstetrics & Gynecology
DX: O42.92 Full-term premature rupture of membranes, unspecified as to length of time between rupture and onset of labor (principal); Z3A.37 37 weeks gestation of pregnancy
CPT/HCPCS: 36415; 76815; 81001; 84112

== ENCOUNTER 2021-11-02 02:20 | Inpatient (IN) | payer MEDICAID ==
[2021-11-02] MEDS ORDERED: CARBOPROST TROMETHAMINE 250 MCG/1 ML INJ IM PRN (03:43)
[2021-11-02] MEDS ORDERED: fentaNYL 100 MCG/2 ML INJ IV PRN (03:43)
[2021-11-02] MEDS ORDERED: OXYTOCIN 10 UNIT/1 ML INJ IM PRN (03:43)
[2021-11-02] MEDS ORDERED: miSOPROStol 200 MCG TAB PR PRN (03:43)
[2021-11-02] MEDS ORDERED: AMPICILLIN/NS 2 GM/100 ML 2 GM/100 ML BAG IV ONE (03:43)
[2021-11-02] MEDS ORDERED: BUTORPHANOL 2 MG/1 ML INJ IV PRN (03:43)
[2021-11-02] MEDS ORDERED: ACETAMINOPHEN 325 MG TAB PO PRN ×2 (03:43→16:41)
[2021-11-02] MEDS ORDERED: NALOXONE 0.4 MG/1 ML INJ IV PRN (03:43)
[2021-11-02] MEDS ORDERED: TERBUTALINE 1 MG/1 ML INJ SUB-Q PRN (03:43)
[2021-11-02] MEDS ORDERED: LIDOCAINE (2%) 20 MG/1 ML VIAL 20 ML MDV INFILTRATI ONE (03:43)
[2021-11-02] MEDS ORDERED: METHYLERGONOVINE MALEATE 0.2 MG/ML VIAL IM PRN (03:43)
[2021-11-02] MEDS ORDERED: MINERAL OIL 30 ML ORAL LIQD PO PRN (03:43)
[2021-11-02] MEDS ORDERED: LOPERAMIDE 2 MG CAP PO PRN (03:43)
--- NOTE | 2021-11-02 03:53 | History and Physical Report ---
History of Present Illness Date of examination: 11/02/21 Date of admission: 11/02/21 Chief complaint: contractions History of present illness: Pt presents to triage in active labor. Pt has had limited pnc. EDC by derick done last week was 11/11/21. States she had some care in our office but wad dismissed due to missed visits. I am not able to confirm this at this time as I am not able to get on the office portal. Past History Past Medical History: no pertinent history Past Surgical History: no surgical history - Obstetrical History Expected Date of Delivery: 11/11/21 Actual Gestation: 38 Week(s) 5 Day(s) : 8 Para: 7 Number of Living Children: 7 Medications and Allergies Allergies Allergy/AdvReac Type Severity Reaction Status Date / Time No Known Allergies Allergy Verified 07/18/21 07:06 Home Medications Medication Instructions Recorded Confirmed Last Taken Type No Known Home Medications [No 07/18/21 07/18/21 Unknown History Reported Home Medications] - Physical Exam Lungs: Positive: Normal air movement Abdomen: Positive: normal appearance, soft. Negative: distention, tenderness, guarding - Obstetrical FHR: category 1 Uterine Contraction Monitor Mode: External Uterine Contraction Pattern: Regular Uterine Tone Measurement Phase: Resting Uterine Contraction Intensity: Moderate Results Result Diagrams: 11/02/21 04:20 All other labs normal. Assessment and Plan - Patient Problems (1) Active labor at term Current Visit: Yes Status: Acute Plan to address problem: -admit -epidural -anticipate -antibx due to unkown GBS status (2) Limited care in third trimester Current Visit: No Status: Acute
[2021-11-02] MEDS ORDERED: OXYTOCIN DRIP 30 UNITS/500 ML BAG IV SCH (04:00)
[2021-11-02 04:31] LABS: Hemoglobin 10.3 gm/dl (10.1-14.3); Mean Corpuscular HGB Conc 33 % (30-34); Mean Corpuscular Volume 76 fl (79-97); Platelet Count 160 K/mm3 (140-440); Red Blood Count 4.05 M/mm3 (3.65-5.03); Red Cell Distribution Width 14.8 % (13.2-15.2)
[2021-11-02] MEDS: LACTATED RINGERS 1,000 ML IV SCH ×2 (04:48→05:37)
[2021-11-02 04:49] LABS: Mean Platelet Volume 8.7 fl (6-12)
[2021-11-02] MEDS ORDERED: NALOXONE 2 MG/2 ML INJ IV PRN (04:57)
[2021-11-02] MEDS ORDERED: ePHEDrine SULFATE 50 MG/1 ML INJ IV PRN (04:57)
[2021-11-02] MEDS ORDERED: fentaNYL-BUPIV 2 MCG/ML-0.125% 200 MCG/100 ML BAG EPIDURAL SCH (05:00)
--- NOTE | 2021-11-02 05:36 | Anesthesia Consultation ---
Anesthesia Consult and Med Hx Date of service: 11/02/21 - Airway Anesthetic Teeth Evaluation: Poor ROM Head & Neck: Adequate Mental/Hyoid Distance: Adequate Mallampati Class: Class II Intubation Access Assessment: Good - Pulmonary Exam CTA: Yes - Cardiac Exam Cardiac Exam: RRR - Pre-Operative Health Status ASA Pre-Surgery Classification: ASA2 Proposed Anesthetic Plan: Epidural - Pulmonary Hx Smoking: No Hx Asthma: No - Cardiovascular System Hx Hypertension: No - Central Nervous System Hx Seizures: No Hx Psychiatric Problems: No - Endocrine Hx Renal Disease: No Hx Hypothyroidism: No Hx Hyperthyroidism: No - Hematic Hx Anemia: No Hx Sickle Cell Disease: No - Other Systems Hx Alcohol Use: No Hx Substance Use: No Hx Obesity: Yes
--- NOTE | 2021-11-02 05:47 | Progress Note ---
Labor Epidural - Labor Epidural Start Time: 05:12 Stop Time: 05:20 Performed by:: DAMIR WARNER Procedure: Patient is requesting epidural for labor pain. H&P and labs reviewed. Procedure explained, questions answered, consent obtained. Patient placed in sitting position with monitors applied. Timeout performed immediately before start of procedure. Prep/drape in usual sterile fashion. Skin localized 3 mL 1% lidocaine at L[3]-L[4] interspace. 17-gauge Touhy epidural needle advanced to NICCI with saline at [8] cm [id number]. No blood/CSF noted via epidural needle. Epidural catheter advanced to [12] cm. Negative aspiration for blood and CSF via catheter, negative response to test dose 3 ml 1.5% lidocaine w/ Epi. Sterile dressing applied followed by tape reinforcement. Patient tolerated procedure well. No immediate complications noted.
[2021-11-02] MEDS: ePHEDrine SULFATE 50 MG/1 ML INJ IV PRN ×2 (06:00→06:11)
[2021-11-02] MEDS: AMPICILLIN/NS 1 GM/50 ML 1 GM/50 ML BAG IV SCH ×2 (08:21→12:27)
--- NOTE | 2021-11-02 09:50 | Progress Note ---
Assessment and Plan Pt requesting AROM. SVE performed and pt tolerated well. Risks to with ROM discussed, including but not limited to infection. Pt verbalizes understanding and agrees to augmentation of labor. AROM clear fluid @ 0915. Orders placed for Pitocin per protocol. Dr. Fontana made aware. Anticipate . - Patient Problems (1) Active labor at term Current Visit: Yes Status: Acute (2) GBS (group B Streptococcus carrier), +RV culture, currently Current Visit: No Status: Acute Plan to address problem: Ampicillin q4h until delivery (3) Limited care in third trimester Current Visit: No Status: Acute Subjective - Subjective Date of service: 11/02/21 Principal diagnosis: IUP @38.5wks, GBS unknown, grandmultip, limited care Patient reports: no new complaints, no vaginal bleeding Objective - Vital Signs Vital Signs: Vital Signs - 12hr 11/02/21 11/02/21 11/02/21 04:14 04:32 04:37 Temperature 98.5 F Pulse Rate 98 H 93 H Respiratory Rate Blood Pressure Blood Pressure [Right] O2 Sat by Pulse 98 98 Oximetry O2 Sat by Pulse 99 Oximetry [ Throughout] 11/02/21 11/02/21 11/02/21 04:42 04:47 04:52 Temperature Pulse Rate 101 H 96 H 96 H Respiratory Rate Blood Pressure Blood Pressure [Right] O2 Sat by Pulse 99 99 99 Oximetry O2 Sat by Pulse Oximetry [ Throughout] 11/02/21 11/02/21 11/02/21 04:57 04:58 05:02 Temperature Pulse Rate 97 H 102 H 106 H Respiratory Rate Blood Pressure 119/69 Blood Pressure [Right] O2 Sat by Pulse 99 98 Oximetry O2 Sat by Pulse Oximetry [ Throughout] 11/02/21 11/02/21 11/02/21 05:03 05:05 05:07 Temperature Pulse Rate 97 H 95 H 101 H Respiratory Rate Blood Pressure 128/59 102/55 92/53 Blood Pressure [Right] O2 Sat by Pulse 99 Oximetry O2 Sat by Pulse Oximetry [ Throughout] 11/02/21 11/02/21 11/02/21 05:08 05:11 05:12 Temperature Pulse Rate 93 H 98 H 97 H Respiratory Rate Blood Pressure 114/57 108/59 Blood Pressure [Right] O2 Sat by Pulse 99 Oximetry O2 Sat by Pulse Oximetry [ Throughout] 11/02/21 11/02/21 11/02/21 05:13 05:15 05:17 Temperature Pulse Rate 97 H 85 96 H Respiratory Rate Blood Pressure 110/59 113/64 114/66 Blood Pressure [Right] O2 Sat by Pulse 100 Oximetry O2 Sat by Pulse Oximetry [ Throughout] 11/02/21 11/02/21 11/02/21 05:19 05:21 05:22 Temperature Pulse Rate 95 H 99 H 98 H Respiratory Rate Blood Pressure 113/66 123/65 Blood Pressure [Right] O2 Sat by Pulse 98 Oximetry O2 Sat by Pulse Oximetry [ Throughout] 11/02/21 11/02/21 11/02/21 05:23 05:25 05:27 Temperature Pulse Rate 96 H 107 H 109 H Respiratory Rate Blood Pressure 114/63 122/73 114/63 Blood Pressure [Right] O2 Sat by Pulse 100 Oximetry O2 Sat by Pulse Oximetry [ Throughout] 11/02/21 11/02/21 11/02/21 05:29 05:31 05:32 Temperature Pulse Rate 107 H 101 H 107 H Respiratory Rate Blood Pressure 112/57 109/59 Blood Pressure [Right] O2 Sat by Pulse 98 Oximetry O2 Sat by Pulse Oximetry [ Throughout] 11/02/21 11/02/21 11/02/21 05:33 05:35 05:37 Temperature Pulse Rate 106 H 93 H 106 H Respiratory Rate Blood Pressure 101/58 99/59 99/54 Blood Pressure [Right] O2 Sat by Pulse 98 Oximetry O2 Sat by Pulse Oximetry [ Throughout] 11/02/21 11/02/21 11/02/21 05:39 05:41 05:42 Temperature Pulse Rate 117 H 110 H 102 H Respiratory Rate Blood Pressure 102/52 108/59 Blood Pressure [Right] O2 Sat by Pulse 98 Oximetry O2 Sat by Pulse Oximetry [ Throughout] 11/02/21 11/02/21 11/02/21 05:43 05:45 05:47 Temperature Pulse Rate 101 H 94 H 93 H Respiratory Rate Blood Pressure 99/58 100/60 102/59 Blood Pressure [Right] O2 Sat by Pulse 98 Oximetry O2 Sat by Pulse Oximetry [ Throughout] 11/02/21 11/02/21 11/02/21 05:49 05:51 05:52 Temperature Pulse Rate 86 96 H 95 H Respiratory Rate Blood Pressure 103/56 100/58 Blood Pressure [Right] O2 Sat by Pulse 98 Oximetry O2 Sat by Pulse Oximetry [ Throughout] 11/02/21 11/02/21 11/02/21 05:56 05:57 05:59 Temperature Pulse Rate 103 H 106 H 107 H Respiratory Rate Blood Pressure 85/48 80/47 79/45 Blood Pressure [Right] O2 Sat by Pulse 97 Oximetry O2 Sat by Pulse Oximetry [ Throughout] 11/02/21 11/02/21 11/02/21 06:01 06:02 06:03 Temperature Pulse Rate 76 101 H 93 H Respiratory Rate Blood Pressure 92/55 93/52 Blood Pressure [Right] O2 Sat by Pulse 98 Oximetry O2 Sat by Pulse Oximetry [ Throughout] 11/02/21 11/02/21 11/02/21 06:05 06:07 06:09 Temperature Pulse Rate 105 H 121 H 111 H Respiratory Rate Blood Pressure 94/52 77/43 82/50 Blood Pressure [Right] O2 Sat by Pulse 99 Oximetry O2 Sat by Pulse Oximetry [ Throughout] 11/02/21 11/02/21 11/02/21 06:11 06:12 06:13 Temperature Pulse Rate 111 H 91 H 107 H Respiratory Rate Blood Pressure 93/54 125/78 Blood Pressure [Right] O2 Sat by Pulse 97 Oximetry O2 Sat by Pulse Oximetry [ Throughout] 11/02/21 11/02/21 11/02/21 06:15 06:17 06:19 Temperature Pulse Rate 110 H 121 H 111 H Respiratory Rate Blood Pressure 111/63 95/64 89/54 Blood Pressure [Right] O2 Sat by Pulse 98 Oximetry O2 Sat by Pulse Oximetry [ Throughout] 11/02/21 11/02/21 11/02/21 06:21 06:22 06:23 Temperature Pulse Rate 113 H 113 H 94 H Respiratory Rate Blood Pressure 87/50 122/57 Blood Pressure [Right] O2 Sat by Pulse 97 Oximetry O2 Sat by Pulse Oximetry [ Throughout] 11/02/21 11/02/21 11/02/21 06:25 06:27 06:28 Temperature Pulse Rate 102 H 114 H 116 H Respiratory Rate Blood Pressure 110/61 131/52 Blood Pressure [Right] O2 Sat by Pulse 95 Oximetry O2 Sat by Pulse Oximetry [ Throughout] 11/02/21 11/02/21 11/02/21 06:29 06:31 06:32 Temperature Pulse Rate 114 H 110 H 119 H Respiratory Rate Blood Pressure 103/51 96/51 Blood Pressure [Right] O2 Sat by Pulse 98 Oximetry O2 Sat by Pulse Oximetry [ Throughout] 11/02/21 11/02/21 11/02/21 06:33 06:35 06:37 Temperature Pulse Rate 114 H 111 H 96 H Respiratory Rate Blood Pressure 99/53 100/57 101/55 Blood Pressure [Right] O2 Sat by Pulse 98 Oximetry O2 Sat by Pulse Oximetry [ Throughout] 11/02/21 11/02/21 11/02/21 06:39 06:41 06:42 Temperature Pulse Rate 109 H 109 H 111 H Respiratory Rate Blood Pressure 101/56 92/51 Blood Pressure [Right] O2 Sat by Pulse 98 Oximetry O2 Sat by Pulse Oximetry [ Throughout] 11/02/21 11/02/21 11/02/21 06:43 06:45 06:47 Temperature Pulse Rate 110 H 112 H 102 H Respiratory Rate Blood Pressure 90/54 92/50 97/53 Blood Pressure [Right] O2 Sat by Pulse 99 Oximetry O2 Sat by Pulse Oximetry [ Throughout] 11/02/21 11/02/21 11/02/21 06:49 06:51 06:52 Temperature Pulse Rate 100 H 107 H 110 H Respiratory Rate Blood Pressure 98/54 97/54 Blood Pressure [Right] O2 Sat by Pulse 99 Oximetry O2 Sat by Pulse Oximetry [ Throughout] 11/02/21 11/02/21 11/02/21 06:53 06:55 06:57 Temperature Pulse Rate 109 H 101 H 101 H Respiratory Rate Blood Pressure 96/54 93/55 93/55 Blood Pressure [Right] O2 Sat by Pulse 99 Oximetry O2 Sat by Pulse Oximetry [ Throughout] 11/02/21 11/02/21 11/02/21 06:59 07:01 07:02 Temperature Pulse Rate 93 H 106 H 111 H Respiratory Rate Blood Pressure 101/58 97/54 Blood Pressure [Right] O2 Sat by Pulse 99 Oximetry O2 Sat by Pulse Oximetry [ Throughout] 11/02/21 11/02/21 11/02/21 07:03 07:05 07:07 Temperature Pulse Rate 108 H 105 H 100 H Respiratory Rate Blood Pressure 91/54 88/51 90/54 Blood Pressure [Right] O2 Sat by Pulse 98 Oximetry O2 Sat by Pulse Oximetry [ Throughout] 11/02/21 11/02/21 11/02/21 07:08 07:09 07:11 Temperature Pulse Rate 91 H 98 H Respiratory Rate Blood Pressure 101/58 94/51 Blood Pressure [Right] O2 Sat by Pulse Oximetry O2 Sat by Pulse 98 Oximetry [ Throughout] 11/02/21 11/02/21 11/02/21 07:12 07:13 07:17 Temperature Pulse Rate 97 H 93 H 109 H Respiratory Rate Blood Pressure 101/55 Blood Pressure [Right] O2 Sat by Pulse 98 97 Oximetry O2 Sat by Pulse Oximetry [ Throughout] 11/02/21 11/02/21 11/02/21 07:22 07:27 07:32 Temperature Pulse Rate 104 H 106 H 105 H Respiratory Rate Blood Pressure Blood Pressure [Right] O2 Sat by Pulse 97 98 96 Oximetry O2 Sat by Pulse Oximetry [ Throughout] 11/02/21 11/02/21 11/02/21 07:37 07:42 07:45 Temperature Pulse Rate 97 H 115 H 113 H Respiratory Rate Blood Pressure 92/54 Blood Pressure [Right] O2 Sat by Pulse 97 97 Oximetry O2 Sat by Pulse Oximetry [ Throughout] 11/02/21 11/02/21 11/02/21 07:47 07:52 07:57 Temperature Pulse Rate 97 H 109 H 108 H Respiratory Rate Blood Pressure Blood Pressure [Right] O2 Sat by Pulse 98 98 98 Oximetry O2 Sat by Pulse Oximetry [ Throughout] 11/02/21 11/02/21 11/02/21 08:00 08:02 08:07 Temperature 98.2 F Pulse Rate 102 H 114 H 124 H Respiratory 14 Rate Blood Pressure Blood Pressure 93/50 [Right] O2 Sat by Pulse 98 97 95 Oximetry O2 Sat by Pulse Oximetry [ Throughout] 11/02/21 11/02/21 11/02/21 08:12 08:17 08:19 Temperature Pulse Rate 110 H 99 H 102 H Respiratory Rate Blood Pressure 93/50 Blood Pressure [Right] O2 Sat by Pulse 97 98 Oximetry O2 Sat by Pulse Oximetry [ Throughout] 11/02/21 11/02/21 11/02/21 08:22 08:27 08:32 Temperature Pulse Rate 90 98 H 99 H Respiratory Rate Blood Pressure Blood Pressure [Right] O2 Sat by Pulse 97 98 98 Oximetry O2 Sat by Pulse Oximetry [ Throughout] 11/02/21 11/02/21 11/02/21 08:37 08:42 08:45 Temperature Pulse Rate 77 107 H 106 H Respiratory Rate Blood Pressure 97/57 Blood Pressure [Right] O2 Sat by Pulse 97 98 Oximetry O2 Sat by Pulse Oximetry [ Throughout] 11/02/21 11/02/21 11/02/21 08:47 08:52 08:57 Temperature Pulse Rate 94 H 95 H 102 H Respiratory Rate Blood Pressure Blood Pressure [Right] O2 Sat by Pulse 97 97 97 Oximetry O2 Sat by Pulse Oximetry [ Throughout] 11/02/21 11/02/21 11/02/21 09:02 09:07 09:12 Temperature Pulse Rate 84 115 H 121 H Respiratory Rate Blood Pressure Blood Pressure [Right] O2 Sat by Pulse 96 99 100 Oximetry O2 Sat by Pulse Oximetry [ Throughout] 11/02/21 11/02/21 11/02/21 09:17 09:20 09:22 Temperature Pulse Rate 105 H 108 H 102 H Respiratory Rate Blood Pressure 108/56 Blood Pressure [Right] O2 Sat by Pulse 98 97 Oximetry O2 Sat by Pulse Oximetry [ Throughout] 11/02/21 11/02/21 11/02/21 09:27 09:32 09:37 Temperature Pulse Rate 100 H 99 H 102 H Respiratory Rate Blood Pressure Blood Pressure [Right] O2 Sat by Pulse 98 98 99 Oximetry O2 Sat by Pulse Oximetry [ Throughout] 11/02/21 11/02/21 09:42 09:43 Temperature Pulse Rate 93 H 93 H Respiratory Rate Blood Pressure Blood Pressure [Right] O2 Sat by Pulse 96 94 Oximetry O2 Sat by Pulse Oximetry [ Throughout] - Exam Breasts: deferred Cardiovascular: Regular rate Lungs: Normal air movement Abdomen: Present: normal appearance, soft. Absent: distention, tenderness, guarding Vulva: both: normal Uterus: Present: normal, other (gravid at term) FHR: auscultation normal, category 1 Uterine Contraction Monitor Mode: External Cervical Dilatation: 7 Cervical Effacement Percentage: 70 station: -2 Uterine Contraction Pattern: Regular Uterine Tone Measurement Phase: Contraction Uterine Contraction Intensity: Moderate Extremities: normal - Labs Labs: Abnormal Labs 11/02/21 04:20 MCV 76 L MCH 26 L Laboratory Results - last 24 hr 11/02/21 11/02/21 11/02/21 04:20 04:20 04:20 WBC 9.4 RBC 4.05 Hgb 10.3 Hct 31.0 MCV 76 L MCH 26 L MCHC 33 RDW 14.8 Plt Count 160 Sickle Cell Screen Negative Syphilis IgG/IgM Ab Hep Bs Antigen Hepatitis C Antibody Non-reactive HIV 1&2 Antibody Rapid HIV P24 Antigen Blood Type O POSITIVE Antibody Screen Negative 11/02/21 11/02/21 11/02/21 04:20 04:20 04:20 WBC RBC Hgb Hct MCV MCH MCHC RDW Plt Count Sickle Cell Screen Syphilis IgG/IgM Ab Nonreactive Hep Bs Antigen Non-reactive Hepatitis C Antibody HIV 1&2 Antibody Rapid Non react HIV P24 Antigen Non react Blood Type Antibody Screen
[2021-11-02] MEDS ORDERED: OXYTOCIN DRIP 30,000 MILLIUNITS/500 ML BAG IV ONE (10:00)
--- NOTE | 2021-11-02 13:53 | Procedure Note ---
OB Delivery Note - Delivery Date of Delivery: 11/02/21 [employer] Cut Off Saw Operator: SERGE RIVAS Estimated blood loss: 100cc - Vaginal Delivery presentation: vertex Delivery position: OA Intrapartum events: no care Delivery induction: none Delivery augmentation: rupture of membranes, pitocin Delivery monitor: external FHT, external uterine Route of delivery: Delivery placenta: spontaneous Delivery cord: 3 umbilical vessels Episiotomy: none Delivery laceration: none Anesthesia: epidural Delivery comments: counts correct x 2 DANGELO present for delivery Fundus firm below umbilicus with scant lochia pericare done mother and baby remain LDR stable - Infant A at 1 minute: 8 at 5 minutes: 9 Infant Gender: Female (7lbs 6oz)
[2021-11-02] MEDS ORDERED: ONDANSETRON 4 MG/2 ML INJ IV PRN (16:41)
[2021-11-02] MEDS ORDERED: WITCH HAZEL/ GLYCERIN PAD TP PRN (16:41)
[2021-11-02] MEDS ORDERED: LANOLIN/ZINC/DIMETHICONE (LANSINOH) 7 GM TP PRN (16:41)
[2021-11-02] MEDS ORDERED: BENZOCAINE/MENTHOL 20/0.5% TOP SPRAY 56 GM TP PRN (16:41)
[2021-11-02] MEDS ORDERED: PROMETHAZINE 25 MG TAB PO PRN (16:41)
[2021-11-02] MEDS ORDERED: HYDROcodone/ACETAMINOPHEN 5-325 MG TAB PO PRN (16:41)
[2021-11-02] MEDS ORDERED: MAGNESIUM HYDROXIDE (MOM) ORAL LIQD UDC PO PRN (16:41)
[2021-11-02] MEDS ORDERED: HYDROCORTISONE 25 MG RECTAL SUPP PR PRN (16:41)
[2021-11-02] MEDS ORDERED: diphenhydrAMINE 25 MG CAP PO PRN (16:41)
[2021-11-02] MEDS ORDERED: PROMETHAZINE 25 MG RECT SUPP PR PRN (16:41)
[2021-11-02] MEDS ORDERED: SENNOSIDES/DOCUSATE SODIUM 8.6/50 MG TAB PO SCH (17:00)
[2021-11-02] MEDS: IBUPROFEN 800 MG TAB PO SCH ×2 (17:04→22:49)
[2021-11-02 19:19] LABS: Amphetamine Screen,Urine PRESUMPTIVE NEGATIVE; Benzodiazepines Screen,Urine PRESUMPTIVE NEGATIVE; Cannabinoid Screen,Urine PRESUMPTIVE NEGATIVE; Cocaine Screen,Urine PRESUMPTIVE NEGATIVE; Methadone Screen,Urine PRESUMPTIVE NEGATIVE; Opiate Screen,Urine PRESUMPTIVE NEGATIVE
--- NOTE | 2021-11-02 19:55 | Post Anesthesia Evaluation ---
- Post Anesthesia Evaluation Patient Participated: Yes Airway Patent: Yes Stable Respiratory Function: Yes Nausea/Vomiting: No Temp > 96.8F: Yes Pain Manageable: Yes Adequeate Hydration: Yes Anesthesia Complications: No Block Receding Appropriately: Yes Patient on Ventilator: No
[2021-11-02] MEDS: FERROUS SULFATE 325 MG TAB PO SCH (22:49)
[2021-11-02] MEDS: DOCUSATE SODIUM 100 MG CAP PO SCH (22:49)
[2021-11-03] MEDS: IBUPROFEN 800 MG TAB PO SCH ×2 (04:40→10:22)
[2021-11-03 05:17] LABS: Hematocrit 31.8 % (30.3-42.9); Hemoglobin 10.2 gm/dl (10.1-14.3)
--- NOTE | 2021-11-03 06:45 | Discharge Summary ---
Providers - Providers Date of Admission: 11/02/21 03:43 Date of discharge: 11/03/21 Attending physician: ALEKSANDER RESENDEZ 11/02/21 03:47 Consult to Case Management [CONS] Routine Services Needed at Discharge: Extension Agent Notified:: computer input Phone number called:: [phone] Was contact made?: No Time called:: 17:21 Comment:: computer input Additional Physician Instructions: no care 11/02/21 16:41 Consult to Dry Room Attendant [CONS] Routine Reason For Exam: assistance with , SNS Primary care physician: ALEKSANDER RESENDEZ Hospitalization Delivery: Procedure: other Episiotomy: none Laceration: none Other procedures: none, tubal ligation complications: none [place] baby: female Hospital course: S: Pt doing well. Ambulating, voiding, and passing flatus without difficulty. BC: Depo, BTL. O: VSS. Fundus firm, minimal bleeding noted. H/H 10.2/31.8. A: 31 y.o. s/p , limited PNC. In good condition . P: Discharge home with instructions. Pt to follow up in the office in 4 weeks. Condition at discharge: Good Disposition: 01 HOME / SELF CARE / HOMELESS Plan - Provider Discharge Summary Activity: routine, no sex for 6 weeks, no heavy lifting 4 weeks, no strenuous exercise Diet: routine Instructions: other Additional instructions: [] Smoking cessation referral if applicable(refer to patient education folder for contact #) [] Refer to [facility] Booklet Call your doctor immediately for: * Fever > 100.5 * Heavy vaginal bleeding ( >1 pad per hour) * Severe persistent headache * Shortness of breath * Reddened, hot, painful area to leg or breast * Drainage or odor from incision. * Keep incision clean and dry at all times and follow doctor's instructions regarding bathing/showering - Follow up plan Follow up: ALEKSANDER RESENDZE MD [Primary Care Provider] - 7 Days (Congratulations on the of your baby! Please follow up with us for your visit in 4 weeks. Should you have any questions or concerns after discharge, please do not hesitate to give us a call at [phone]. )
[2021-11-03] MEDS ORDERED: medroxyPROGESTERone ACETATE 150 MG/ML SYRINGE IM ONE (10:00)
[2021-11-03] MEDS ORDERED: PRENATAL VIT27-FE FUMARATE-FOLIC ACID VIT TAB PO SCH (10:00)
[2021-11-03] MEDS: DOCUSATE SODIUM 100 MG CAP PO SCH (10:22)
[2021-11-03] MEDS: FERROUS SULFATE 325 MG TAB PO SCH (10:22)
[2021-11-03 13:10] VITALS: BP 119/80
[2021-11-03] MEDS ORDERED: TETANUS,DIPH,PERTUSS(ACELL) VACCINE 0.5 ML SYRINGE IM ONE (13:54)
== END 2021-11-03 13:54 | disposition home or self-care (01) | DRG 775 ==
LOC: TRG 02:20 → APU 02:22 → TRG 03:43 → LD 03:43 → OB 16:37
PROVIDERS: ADMIT Obstetrics & Gynecology; ATTEND Obstetrics & Gynecology
PROC: 10E0XZZ Delivery of Products of Conception, External Approach (ICD-10-PCS; principal; 2021-11-02)
PROC: 3E0R3BZ Introduction of Anesthetic Agent into Spinal Canal, Percutaneous Approach (ICD-10-PCS; 2021-11-02)
PROC: 00HU33Z Insertion of Infusion Device into Spinal Canal, Percutaneous Approach (ICD-10-PCS; 2021-11-02)
PROC: 10907ZC Drainage of Amniotic Fluid, Therapeutic from Products of Conception, Via Natural or Artificial Opening (ICD-10-PCS; 2021-11-02)
PROC: 3E0234Z Introduction of Serum, Toxoid and Vaccine into Muscle, Percutaneous Approach (ICD-10-PCS; 2021-11-03)
DX: O99.824 Streptococcus B carrier state complicating childbirth (principal); Z37.0 Single live birth; Z3A.38 38 weeks gestation of pregnancy; Z23 Encounter for immunization
CPT/HCPCS: 36415; 59020; 59025; 80307; 85014; 85018; 85027; 85660; 86592; 86706; 86762; 86803; 86850; 86900; 86901; 87806; 96360; 96372; G0378; J3490; J0290; J1050; J2590; J7120; U0003